=== PATIENT | male | born 1985 | race African-American/Black ===

== ENCOUNTER → 2017-02-11 09:49 | Emergency (ER) | payer BC, OTHER ==
[2017-02-11 10:27] VITALS: BP 140/81
== END | disposition left against medical advice (07) ==
LOC: ED 09:49
DX: M54.9 Dorsalgia, unspecified (principal); Z53.21 Procedure and treatment not carried out due to patient leaving prior to being seen by health care provider

== ENCOUNTER 2017-07-31 19:05 | Inpatient (IN) | payer BC, MEDICAID ==
[2017-07-31 19:47] LABS: Hematocrit 50 % (42-52); Hemoglobin 17.3 g/dl (14.0-18.0); Mean Corpuscular HGB Conc 35 g/dl (31-36); Mean Corpuscular Hemoglobin 30 pg (27-31); Mean Corpuscular Volume 86 fL (80-94); Mean Platelet Volume 9 um3 (7.4-10.4); Red Blood Count 5.81 10^6/ul (4.0-5.4); Red Cell Distribution Width 14 % (10.5-15); White Blood Count 7.4 10^3/ul (3.5-10.8)
[2017-07-31 19:50] LABS: Urine Bilirubin Negative (Negative); Urine Glucose Negative (Negative); Urine Nitrite Negative (Negative)
[2017-07-31 19:58] LABS: ALT 108 U/L (7-52); AST 65 U/L (13-39); Albumin 4.2 g/dL (3.2-5.2); Alkaline Phosphatase 59 U/L (34-104); Anion Gap 8 mmol/L (2-11); BUN/Creatinine Ratio 14.4 (8-20); Blood Urea Nitrogen 17 mg/dL (6-24); CO2 Carbon Dioxide 28 mmol/L (22-32); Calcium 8.9 mg/dL (8.6-10.3); Chloride 105 mmol/L (101-111); EGFR Non-African American 71.5 (>60); Globulin 3.2 g/dL (2-4); Glucose 68 mg/dL (70-100); Potassium 3.3 mmol/L (3.5-5.0); Sodium 141 mmol/L (133-145); Total Protein 7.4 g/dL (6.4-8.9)
[2017-07-31 20:01] LABS: Benzodiazepine Urine Screen None Detected (None Detect)
[2017-07-31 20:01] LABS: Acetaminophen < 15 mcg/mL; Alcohol 227 mg/dL (<10); Salicylate < 2.50 mg/dL (<30)
[2017-07-31 20:15] LABS: TSH (Thyroid Stimulating Horm) 0.55 mcIU/mL (0.34-5.60)
[2017-07-31] MEDS ORDERED: Nicotine Inhaler* 10 MG AMP INH ONE (20:16)
[2017-07-31] MEDS ORDERED: Mouth Piece, Nicotine* 1 EACH CARTRIDGE ONE (20:18)
[2017-07-31] MEDS ORDERED: Nicotine Inhaler* 10 MG AMP ONE (20:18)
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
--- NOTE | 2017-08-01 10:08 | PN ---
ED Flex Patient Progress Note Subjective: This is a 31 year-old M who is pending observed secondary to ETOH abuse and depressive symptoms. Pt offers no complaints at this time. He states he slept and ate well. Objective: Vitals: Most recent vital signs documented below. General NAD, Alert and oriented x3. Heart: rrr at 70 bpm Lungs: CTA or with rales, rhonchi, wheezing abd: soft nontender Laboratory: Current laboratory results documented below. Assessment: substance abuse Plan: Pending psychiatric to observe will follow up daily until disposition made. Condition: Stable Vital Signs Temp Pulse Resp BP Pulse Ox 98.0 F 107 16 101/48 97 08/01/17 02:52 08/01/17 02:52 08/01/17 02:52 08/01/17 02:52 08/01/17 02:52 Lab Results - Entire Visit 07/31/17 07/31/17 07/31/17 19:14 19:14 19:10 WBC 7.4 RBC 5.81 H Hgb 17.3 Hct 50 MCV 86 MCH 30 MCHC 35 RDW 14 Plt Count 175 MPV 9 Neut % (Auto) 51.4 Lymph % (Auto) 32.7 [place] % (Auto) 13.6 H Eos % (Auto) 2.0 Baso % (Auto) 0.3 Absolute Neuts (auto) 3.8 Absolute Lymphs (auto) 2.4 Absolute Monos (auto) 1.0 H Absolute Eos (auto) 0.1 Absolute Basos (auto) 0 Absolute Nucleated RBC 0 Nucleated RBC % 0.1 Sodium Potassium Chloride Carbon Dioxide Anion Gap BUN Creatinine Est GFR ( Amer) Est GFR (Non-Af Amer) BUN/Creatinine Ratio Glucose Calcium Total Bilirubin AST ALT Alkaline Phosphatase Total Protein Albumin Globulin Albumin/Globulin Ratio TSH Urine Color Colorless Urine Appearance Clear Urine pH 6.0 Ur Specific [place] 1.002 L Urine Protein Negative Urine Ketones Negative Urine Blood Negative Urine Nitrate Negative Urine Bilirubin Negative Urine Urobilinogen Negative Ur Leukocyte Esterase Negative Urine Glucose Negative Salicylates Urine Opiates Screen None detected Acetaminophen Ur Barbiturates Screen None detected Ur Phencyclidine Scrn None detected Ur Amphetamines Screen None detected U Benzodiazepines Scrn None detected Urine Cocaine Screen None detected U Cannabinoids Screen None detected Serum Alcohol 07/31/17 19:10 WBC RBC Hgb Hct MCV MCH MCHC RDW Plt Count MPV Neut % (Auto) Lymph % (Auto) [place] % (Auto) Eos % (Auto) Baso % (Auto) Absolute Neuts (auto) Absolute Lymphs (auto) Absolute Monos (auto) Absolute Eos (auto) Absolute Basos (auto) Absolute Nucleated RBC Nucleated RBC % Sodium 141 Potassium 3.3 L Chloride 105 Carbon Dioxide 28 Anion Gap 8 BUN 17 Creatinine 1.18 H Est GFR ( Amer) 92.0 Est GFR (Non-Af Amer) 71.5 BUN/Creatinine Ratio 14.4 Glucose 68 L Calcium 8.9 Total Bilirubin 1.30 H AST 65 H ALT 108 H Alkaline Phosphatase 59 Total Protein 7.4 Albumin 4.2 Globulin 3.2 Albumin/Globulin Ratio 1.3 TSH 0.55 Urine Color Urine Appearance Urine pH Ur Specific [place] Urine Protein Urine Ketones Urine Blood Urine Nitrate Urine Bilirubin Urine Urobilinogen Ur Leukocyte Esterase Urine Glucose Salicylates < 2.50 Urine Opiates Screen Acetaminophen < 15 Ur Barbiturates Screen Ur Phencyclidine Scrn Ur Amphetamines Screen U Benzodiazepines Scrn Urine Cocaine Screen U Cannabinoids Screen Serum Alcohol 227 H
[2017-08-01] MEDS ORDERED: Mouth Piece, Nicotine* 1 EACH CARTRIDGE ONE (10:33)
[2017-08-01] MEDS ORDERED: Acetaminophen TAB* 325 MG PO PRN (15:30)
[2017-08-01] MEDS ORDERED: Mouth Piece, Nicotine* 1 EACH CARTRIDGE INH SCH (15:30)
[2017-08-01] MEDS ORDERED: Nicotine Inhaler* 10 MG AMP INH PRN (15:30)
[2017-08-01] MEDS ORDERED: Al Hydrox/Mg Hydrox/Simet LIQ* 30 ML UDC PO PRN (15:30)
[2017-08-01] MEDS: traZODone TAB* 50 MG TAB PO SCH (21:09)
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
[2017-08-02] MEDS: Vitamin THERAPEUTIC TAB PO SCH (08:17)
[2017-08-02] MEDS: FLUoxetine CAP* 20 MG PO SCH (08:17)
[2017-08-02] MEDS ORDERED: Influenza VAC *QUAD* 2017-18* 0.5 ML SYRINGE IM ONE (09:00)
[2017-08-02] MEDS: traZODone TAB* 50 MG TAB PO SCH (21:28)
[2017-08-03] MEDS: FLUoxetine CAP* 20 MG PO SCH (08:17)
[2017-08-03] MEDS: Vitamin THERAPEUTIC TAB PO SCH (08:17)
[2017-08-03] MEDS: Disulfiram TAB* 250 MG PO SCH (12:09)
--- NOTE | 2017-08-03 14:45 | PN ---
Subjective - Subjective Service Type: 53190 Hosp care 25 min moderate complexity Subjective: Patient reports motivation to attend inpatient substance use treatment. He states he phoned his counselor at [facility] and was told there is a bed available. He also spoke with his deportation officer and is encouraged to utilize Antabuse, complete inpatient treatment then wear an alcohol monitor bracelet. He states he hopes to finish his associate's degree at [employer] then transfer to [employer]. Patient goes on to describe contemplation about events leading to relapse. He states he has an AA sponsor and his working closely with him. Stacey denies alcohol withdrawal symptoms or cravings. He states he relapsed on cigarettes last month but denies cravings. He states he was abstinent for over a year prior. He declines need for nicotine replacement. Patient denies side effects from fluoxetine. He reports continued anxiety and states understanding of expected effects of this med. He declines increase or adjunct medications for anxiety. Objective - Appearance Appearance: Well Developed/Nourished Dysmorphic Features: Yes Hygiene: Normal Grooming: Well Kept - Behavior Psychomotor Activities: Normal Exhibits Abnormal Movement: No - Attitude and Relatedness Attitude and Relatedness: Cooperative Eye Contact: Good - Speech Quality: Unpressured Latencies: Normal Quantity: Appropriate - Mood Patient's Decription of Mood: "Fine" - Affect Observed Affect: Depressed Affect Consistent with: Euthymia - Thought Process Patient's Thought Process: Coherent, Goal Directed Thought Content: No Passive Wish, No Suicidal Planning, No Homicidal Ideation, No Paranoid Ideation - Sensorium Experiencing Hallucinations: No, Sensorium is Clear Type of Hallucinations: Visual: No, Auditory: No, Command: No - Level of Consciousness Level of Consciousness: Alert Orientation: Yes Intact, Yes Orientated to Time, Yes Orientated to Place, Yes Orientated to Person - Impulse Control Impulse Control: Tenuous - Insight and Judgement Insight and Judgement: Fair - Group Participation Particating in Group Activities: Yes - Medication Management Medication Management Adherence: Yes Assessment - Assessment Merits Inpatient Hospitalization: For Immediate Safety, For Stabilization, To Initiate Treatment, For Discharge Planning Inpatient DSM-IV Dx: major depressive d/o, moderate, recurrent; alcohol use d/o ; tobacco use d/o Clinical Impression: 31yo male who presented to the ED by police when found unresponsive and intoxicated in the community. He expressed increased depressed mood and suicidal ideation and requested admission to [facility]. He merits hospitalization for immediate safety and stabilization. Plan - Plan Treatment Plan: Name: STACEY SANCHEZ Birthdate: 1985 [id number] continue acute intensive psychiatric treatment. add antabuse 500mg po daily. decrease to q30min observation and allow staff pass. He is agreeable to increase substance use tx from outpatient to inpatient. Referrals will be sent by clinical social worker. Obtain labs for HIV and hepatitis per patient request. Will recheck LFTs. Continued Medication Management: Different Medication Medications: Current Medications Acetaminophen (Tylenol Tab*) 650 mg PO Q4H PRN PRN Reason: PAIN or TEMP > 101 F Al Hydrox/Mg Hydrox/Simethicone (Maalox Plus*) 30 ml PO Q4H PRN PRN Reason: INDIGESTION Device (Nicotine Mouth Piece*) 1 each INH .[facility] Disulfiram (Antabuse Tab*) 500 mg PO DAILY [facility] Last Admin: 08/03/17 12:09 Dose: 500 mg Fluoxetine HCl (Prozac Cap*) 20 mg PO DAILY [facility] Last Admin: 08/03/17 08:17 Dose: 20 mg Multivitamins (Theragran Tab*) 1 tab PO DAILY [facility] Last Admin: 08/03/17 08:17 Dose: 1 tab Nicotine (Nicotine Inhaler*) 10 mg INH Q2H PRN PRN Reason: CRAVING Trazodone HCl (Desyrel Tab*) 50 mg PO BEDTIME [facility] Last Admin: 08/02/17 21:28 Dose: 50 mg - Discharge Plan Discharge Plan: Drug/Alcohol Rehab Outpatient Program: [facility]
[2017-08-03 16:52] LABS: Albumin 3.9 g/dL (3.2-5.2); Direct Bilirubin 0.2 mg/dL (0.03-0.18); Globulin 2.6 g/dL (2-4); Indirect Bilirubin 0.6 mg/dL (0.3-1.0); Total Bilirubin 0.8 mg/dL (0.2-1.0); Total Protein 6.5 g/dL (6.4-8.9)
[2017-08-03] MEDS: traZODone TAB* 50 MG TAB PO SCH (21:52)
[2017-08-04] MEDS: FLUoxetine CAP* 20 MG PO SCH (07:58)
[2017-08-04] MEDS: Disulfiram TAB* 250 MG PO SCH ×2 (07:58→11:51)
[2017-08-04] MEDS: Vitamin THERAPEUTIC TAB PO SCH (07:58)
--- NOTE | 2017-08-04 15:27 | PN ---
Subjective - Subjective Service Type: 26297 Hosp care 25 min moderate complexity Subjective: Patient reports fleeting stomach pain after taking antabuse; denies other side effects. He is notified of LFT results and hep/hiv negative results. He reports poor sleep due to frequent waking and requests increase in trazodone. He would like to increase fluoxetine. Patient reports motivation to pursue [facility] inpatient treatment. He recognizes some of the triggers leading to relapse: "self hate" and frustration with family court and other barriers to visitation with his daughter. He states concern that his is being told by others to "just leave him." He states he knows that he has to prioritize recovery and also wants her to be supportive and "in his corner." Objective - Appearance Appearance: Well Developed/Nourished Dysmorphic Features: No Hygiene: Normal Grooming: Well Kept - Behavior Psychomotor Activities: Normal Exhibits Abnormal Movement: No - Attitude and Relatedness Attitude and Relatedness: Cooperative Eye Contact: Good - Speech Quality: Unpressured Latencies: Normal Quantity: Appropriate - Mood Patient's Decription of Mood: "Good" - Affect Observed Affect: Good Affect Consistent with: Euthymia - Thought Process Patient's Thought Process: Coherent, Goal Directed Thought Content: No Passive Wish, No Suicidal Planning, No Homicidal Ideation, No Paranoid Ideation - Sensorium Experiencing Hallucinations: No, Sensorium is Clear Type of Hallucinations: Visual: No, Auditory: No, Command: No - Level of Consciousness Level of Consciousness: Alert Orientation: Yes Intact, Yes Orientated to Time, Yes Orientated to Place, Yes Orientated to Person - Impulse Control Impulse Control: Intact - Insight and Judgement Insight and Judgement: Good - Group Participation Particating in Group Activities: Yes - Medication Management Medication Management Adherence: Yes Assessment - Assessment Merits Inpatient Hospitalization: For Immediate Safety, For Stabilization, To Initiate Treatment, For Discharge Planning Inpatient DSM-IV Dx: major depressive d/o, moderate, recurrent; alcohol use d/o ; tobacco use d/o Clinical Impression: 31yo male who presented to the ED by police when found unresponsive and intoxicated in the community. He expressed increased depressed mood and suicidal ideation and requested admission to [facility]. He merits hospitalization for immediate safety and stabilization. Plan - Plan Treatment Plan: Name: STACEY SANCHEZ Birthdate: 1985 [id number] continue acute intensive psychiatric treatment. decrease antabuse to 250mg daily , increase trazodone to 100mg qhs and fluoxetine to 30mg daily. add computer privileges. Patient accepted to [facility] and given a bed date for tomorrow morning. Continued Medication Management: Start Medication Medications: Current Medications Acetaminophen (Tylenol Tab*) 650 mg PO Q4H PRN PRN Reason: PAIN or TEMP > 101 F Al Hydrox/Mg Hydrox/Simethicone (Maalox Plus*) 30 ml PO Q4H PRN PRN Reason: INDIGESTION Device (Nicotine Mouth Piece*) 1 each INH [facility] Disulfiram (Antabuse Tab*) 250 mg PO DAILY [facility] Last Admin: 08/04/17 11:51 Dose: Not Given Fluoxetine HCl (Prozac Cap*) 30 mg PO DAILY [facility] Multivitamins (Theragran Tab*) 1 tab PO DAILY [facility] Last Admin: 08/04/17 07:58 Dose: 1 tab Nicotine (Nicotine Inhaler*) 10 mg INH Q2H PRN PRN Reason: CRAVING Trazodone HCl (Desyrel Tab*) 100 mg PO BEDTIME [facility] - Discharge Plan Discharge Plan: Drug/Alcohol Rehab Outpatient Program: [facility]
[2017-08-04] MEDS ORDERED: traZODone TAB* 100 MG PO SCH (21:00)
[2017-08-05] MEDS: Disulfiram TAB* 250 MG PO SCH (07:39)
[2017-08-05] MEDS: Vitamin THERAPEUTIC TAB PO SCH ×2 (07:39→07:41)
[2017-08-05 07:41] VITALS: BP 119/66
[2017-08-05] MEDS ORDERED: FLUoxetine CAP* 10 MG PO SCH (09:00)
--- NOTE | 2017-08-06 10:38 | DS ---
DISCHARGE SUMMARY: DATE OF ADMISSION: 08/01/17 DATE OF DISCHARGE: 08/05/17 SUPERVISING PSYCHIATRIST: Quintin Kirkland MD DISCHARGE DIAGNOSES: 1. Alcohol use disorder. 2. Cocaine use disorder. 3. Tobacco use disorder. 4. Major depressive disorder, severe recurrent. CONDITION AT THE TIME OF DISCHARGE: Improved. The patient is euthymic and congruent. Affect: He r eported readiness for discharge. He reports improved depression and anxiety and denies SI. He repor ts eagerness to attend [facility] inpatient and has been an active participant in discharge planning. MENTAL STATUS EXAM AT THE TIME OF DISCHARGE: The patient is a moderately built 31- year-old male who appears stated age. He is adequately groomed, dressed in his own clothing. He makes good eye contact. He is cooperative and answers questions fully. He is well related, has no abnormal psy chomotor activity observed. He is alert and oriented. Speech is soft and articulate with normal rat e, rhythm and volume. His affect is constricted. He reports his mood is "good." Thought process is linear and goal-directed. Thought content is negative for SI, AV hallucinations, delusions. His in sight and judgment are good. His impulse control is good in the setting. He states motivation to pa rticipate in inpatient substance use treatment. He is motivated to be an active participant of his amily. His fund of knowledge is adequate. DISCHARGE INSTRUCTIONS: Given to the patient by nursing staff: A. Medications: 1. Disulfiram 250 mg p.o. daily. 2. Clonidine 30. 3. Fluoxetine 30 mg p.o. daily, quantity 30. 4. Trazodone 100 mg p.o. q.h.s., quantity 30. 5. Multivitamin 1 p.o. daily, quantity 30. These were electronically prescribed to [facility] in [place] per request of [facility] inpatient. B. Diet: Regular. C. Activities: Ambulation as tolerated. Tobacco cessation is not applicable and there are no pendi ng studies at the time of discharge. The patient was informed of his normal results of HIV and hepat itis screening per his request. D. Follow-up care: The patient will follow up with [facility] for inpatient substance use treatment. He will follow up with his primary care provider, [facility] as needed. Results of labo ratory tests will be faxed per patient's request. Substance use followup: Patient was referred to [facility] in [place] for substance abuse treatment. He has also been prescribed Antabuse for alcoh ol use disorder per his request. HOSPITAL COURSE: A. Reason for admission: The patient presented to the emergency department heavily intoxicated after being found in the community unresponsive lying on the ground. When he was medica lly stable and no longer intoxicated, he reported depression and suicidal ideation. He requested vol untary hospitalization. B. Psychiatric treatment rendered: The patient was admitted to [facility] and p laced on 15-minute checks. He was full code status and his legal status is voluntary. He was encour aged to participate in supportive milieu, individual sessions with staff and psychoeducational groups . The patient denied alcohol withdrawal symptoms. Therefore, WAM was not necessary. He requested m edication Antabuse for alcohol cravings and prevention of relapse. The patient was an active partici pant of programming. He was calm and in behavioral control. He was safe on all checks. He was decre ased to 30-minute observation and allowed staff pass. He was in close contact with his [facility] counselo r as he had already been an outpatient client. He coordinated with her to be [facility] [place]. The patient completed a NITA packet. He requested use of the computer to coordinate with [facility] as he is also motivated to finish his associates degree. He was in contact w ith his chief strategy officer and is motivated to complete inpatient treatment and then wear an alcohol m onitor bracelet. The patient was trialed on fluoxetine and trazodone. He was agreeable to increase these doses to fluoxetine 30 mg for improved treatment of anxiety along with depression. He reported efficacy from trazodone the first night, less so in the second night and requested a dose increase. The patient denied need for nicotine replacement as he had recently relapsed on cigarettes, but is m otivated to refrain from nicotine use. LABORATORY RESULTS: The patient's CBC was grossly unremarkable. His CMP was noted to have elevated AST and ALT. Upon arrival to the emergency department, his alcohol level was 227. We repeated his li tyrese enzymes on 08/03/17. His AST and ALT are starting to trend downward. The patient requested HIV and hepatitis screenings and these were all nonreactive. The patient was notified of bed availabilit y at [facility] and discharge was planned for the morning of 08/05/17. The patient was offered and accepte d a Medicaid cab transport to the facility. He notified his and family members and they are sup portive and will be helping him by bringing him clothing and other supplies. The patient was dischar ged by nursing staff and given written information. He was encouraged to call the unit for any quest ion or concerns after discharge and he was made aware of other resources in the community for alcohol and substance use. RADHA CASTAÑEDA, RICK [id number]/[facility] #: [id number]
== END 2017-08-05 09:00 | DRG 751 ==
LOC: ED 19:05 → BSU 08-01 14:02
PROVIDERS: ADMIT Psychiatry & Neurology Psychiatry; ATTEND Psychiatry & Neurology Psychiatry
DX: F33.1 Major depressive disorder, recurrent, moderate (principal); R45.851 Suicidal ideations; F10.129 Alcohol abuse with intoxication, unspecified; Y90.8 Blood alcohol level of 240 mg/100 ml or more; F17.210 Nicotine dependence, cigarettes, uncomplicated; F11.21 Opioid dependence, in remission; F14.21 Cocaine dependence, in remission; Z81.8 Family history of other mental and behavioral disorders; Z81.1 Family history of alcohol abuse and dependence; Z81.3 Family history of other psychoactive substance abuse and dependence
CPT/HCPCS: 36415; 80053; 80074; 80076; 80307; 80320; 80329; 81003; 84443; 85025; 86703; 90686; 99222; 99232; A9270-GY; G0480

== ENCOUNTER 2017-11-03 18:45 | Emergency (ER) | payer OTHER ==
[2017-11-03] MEDS ORDERED: Tetan/Diph/Pertus SYR(Tdap)* 0.5 ML SYR(BOOSTRIX) use SYR IM ONE (19:17)
--- NOTE | 2017-11-03 19:17 | ED ---
Laceration/Wound HPI - HPI Summary HPI Summary: 31-year-old male presents with right arm laceration today. He states he was reaching into a toolbox onto the box. The area is actively bleeding. He does not know when his last tetanus was. He denies any foreign body. He has full range of motion of his arm. He is right-handed. - History of Current Complaint Stated Complaint: RIGHT ARM LAC Time Seen by Provider: 11/03/17 18:52 Pain Intensity: 0 - Additional Pertinent History Primary Care Physician: SMITHA - Allergy/Home Medications Allergies/Adverse Reactions: Allergies Allergy/AdvReac Type Severity Reaction Status Date / Time Penicillins Allergy Swelling Verified 11/03/17 19:06 Of Face,Lips,& Throat PMH/Surg Hx/FS Hx/Imm Hx Endocrine/Hematology History: Denies: Hx Anticoagulant Therapy, Hx Diabetes, Hx Thyroid Disease Cardiovascular History: Denies: Hx Hypertension, Hx Pacemaker/ICD Respiratory History: Denies: Hx Asthma, Hx Chronic Obstructive Pulmonary Disease (COPD) GI History: Denies: Hx Ulcer History: Denies: Hx Renal Disease Sensory History: Denies: Hx Contacts or Glasses, Hx Hearing Aid Opthamlomology History: Denies: Hx Contacts or Glasses Neurological History: Denies: Hx Dementia, Hx Seizures Psychiatric History: Reports: Hx Community Mental Health Tx, Hx Substance Abuse Denies: Hx Eating Disorder, Hx of Violent Episodes Against Others - Immunization History Date of Tetanus Vaccine: 2010 Infectious Disease History: No Infectious Disease History: Denies: Hx Clostridium Difficile, Hx Hepatitis, Hx Human Immunodeficiency Virus (HIV), Hx of Known/Suspected MRSA, Hx Shingles, Hx Tuberculosis, Hx Known/ Suspected VRE, Hx Known/Suspected VRSA, History Other Infectious Disease, Traveled Outside the [place] in Last 30 Days - Family History Known Family History: Positive: None Negative: Respiratory Disease - Social History Alcohol Use: Daily Substance Use Type: Reports: Heroin Substance Use Comment - Amount & Last Used: today Smoking Status (MU): Former Smoker Type: Cigarettes Amount Used/How Often: IPPD FOR 5-10 YEARS but has not smoked or used tobacco in the last 30 days Have You Smoked in the Last Year: No Review of Systems Negative: Fever Negative: Chest Pain Negative: Shortness Of Breath Positive: Other - right hand laceration All Other Systems Reviewed And Are Negative: Yes Physical Exam Triage Information Reviewed: Yes Vital Signs On Initial Exam: Initial Vitals Temp Pulse Resp BP Pulse Ox 98.7 F 94 18 150/93 100 11/03/17 18:49 11/03/17 18:49 11/03/17 18:49 11/03/17 18:49 11/03/17 18:49 Vital Signs Reviewed: Yes Appearance: Positive: Well-Appearing Skin: Positive: Warm, Dry, Other - 5cm by 1/2cm laceration to right forearm Head/Face: Positive: Normal Head/Face Inspection Eyes: Positive: Normal, Conjunctiva Clear Respiratory/Lung Sounds: Positive: Clear to Auscultation, Breath Sounds Present Cardiovascular: Positive: Normal, RRR Musculoskeletal: Positive: Strength/ROM Intact - right arm, Other - good pulses Neurological: Positive: Normal Psychiatric: Positive: Normal Procedures - Laceration/Wound Repair 1 Location: Other - right forearm Description: Linear Anesthesia: Local, 1.0% Length, Depth and Shape: 5cm by 1/2cm Irrigated w/ Saline (ccs): 100 Laceration/Wound Explored: no foreign body removed Closure: Single Layer Suture Type: Prolene - 4-0 Number of Sutures: 5 Layer Closure?: No Sterile Dressing Applied?: No - telfa and karolina Diagnostics - Vital Signs Vital Signs Temp Pulse Resp BP Pulse Ox 11/03/17 18:49 98.7 F 94 18 150/93 100 - Laboratory Lab Statement: Any lab studies that have been ordered have been reviewed, and results considered in the medical decision making process. Laceration Repair Course/Dx - Course Course Of Treatment: 31-year-old male presents with right arm laceration today. He states he was reaching into a toolbox onto the box. The area is actively bleeding. He does not know when his last tetanus was. He denies any foreign body. He has full range of motion of his arm. He is right-handed. On exam has 5 cm laceration to the right forearm. Clean area and placed 5 sutures. Gave tdap. Patient understands and agrees with plan. - Differential Dx Differental Diagnoses: Abrasion, Avulsion, Laceration - Clinical Impression Provider Diagnoses: Laceration of right upper arm Discharge - Discharge Plan Condition: Good Disposition: HOME Patient Education Materials: Care For Your Stitches (ED) Referrals: Luis Snow MD [Primary Care Provider] - Additional Instructions: Take Tylenol or ibuprofen for pain Keep area clean and dry for 24 hours Return to ED or primary in 10-14 days to have sutures removed Return to ED if develop signs of infection such as fever, spreading redness, or pus.
[2017-11-03 19:34] VITALS: BP 140/80
== END 2017-11-03 19:33 | disposition home or self-care (01) ==
LOC: ED 18:45
DX: S51.811A Laceration without foreign body of right forearm, initial encounter (principal); W27.8XXA Contact with other nonpowered hand tool, initial encounter; Y92.9 Unspecified place or not applicable; Z23 Encounter for immunization; Z87.891 Personal history of nicotine dependence; Z88.0 Allergy status to penicillin
CPT/HCPCS: 12002; 90471; 90715; 99282

== ENCOUNTER 2019-11-13 23:37 | Emergency (ER) | payer OTHER ==
[2019-11-14] MEDS ORDERED: Clindamycin CAP* 150 MG PO ONE (02:33)
[2019-11-14] MEDS ORDERED: Naproxen TAB* 250 MG PO ONE (02:33)
--- NOTE | 2019-11-14 02:38 | ED ---
Throat Pain/Nasal Congestion - HPI Summary HPI Summary: Patient is a 33 y/o M presenting to [facility] with chief complaint of dental pain. He states that the dental pain onset around 2100 last evening. Patient notes some pain to his entire left face as well. Fever, nausea are denied. 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 He denies PMHx, daily medications, PSHx. He does note a Penicillin allergy. Patient smokes cigarettes and consumes alcohol but denies other substance usage. Home medications and allergies are reviewed. - History of Current Complaint Chief Complaint: EDDentalPain Time Seen by Provider: 11/14/19 02:21 Hx Obtained From: Patient Onset/Duration: Lasting Hours, Still Present Severity: Moderate Associated Signs And Symptoms: Positive: Negative Cough: None - Allergies/Home Medications Allergies/Adverse Reactions: Allergies Allergy/AdvReac Type Severity Reaction Status Date / Time Penicillins Allergy Swelling Verified 11/13/19 23:39 Of Face,Lips,& Throat Home Medications: Home Medications Cefdinir cap* [Cefdinir 300 MG cap (NF)] 300 mg PO BID #20 cap 09/10/19 [Rx] Ondansetron ODT TAB* [Zofran 4 MG Odt TAB*] 4 mg PO Q8H PRN #12 tab.odt [Rx] clindamycin HCL [Clindamycin HCl] 150 mg PO QID #40 capsule 11/14/19 [Rx] PMH/Surg Hx/FS Hx/Imm Hx Endocrine/Hematology History: Denies: Hx Anticoagulant Therapy, Hx Diabetes, Hx Thyroid Disease Cardiovascular History: Denies: Hx Hypertension, Hx Pacemaker/ICD Respiratory History: Denies: Hx Asthma, Hx Chronic Obstructive Pulmonary Disease (COPD) GI History: Denies: Hx Ulcer History: Denies: Hx Renal Disease Sensory History: Denies: Hx Contacts or Glasses, Hx Hearing Aid Opthamlomology History: Denies: Hx Contacts or Glasses Neurological History: Denies: Hx Dementia, Hx Seizures Psychiatric History: Reports: Hx Community Mental Health Tx, Hx Substance Abuse Denies: Hx Eating Disorder, Hx of Violent Episodes Against Others - Immunization History Date of Tetanus Vaccine: 2010 Infectious Disease History: No Infectious Disease History: Denies: Hx Clostridium Difficile, Hx Hepatitis, Hx Human Immunodeficiency Virus (HIV), Hx of Known/Suspected MRSA, Hx Shingles, Hx Tuberculosis, Hx Known/ Suspected VRE, Hx Known/Suspected VRSA, History Other Infectious Disease, Traveled Outside the [place] in Last 30 Days - Family History Known Family History: Negative: Respiratory Disease - Social History Alcohol Use: Weekly Substance Use Type: Reports: None Substance Use Comment - Amount & Last Used: today Smoking Status (MU): Current Some Day Smoker Type: Cigarettes Amount Used/How Often: IPPD FOR 5-10 YEARS but has not smoked or used tobacco in the last 30 days Have You Smoked in the Last Year: No - Additional Comments History Additional Comments: No PHMx No PSHx Review of Systems - ROS Summary Review of Systems Summary: Home Medications Medication Instructions Recorded Confirmed Type Cefdinir cap* [Cefdinir 300 MG cap 300 mg PO BID #20 cap 09/10/19 Rx (NF)] Ondansetron ODT TAB* [Zofran 4 MG 4 mg PO Q8H PRN #12 tab.odt 09/10/19 Rx Odt TAB*] clindamycin HCL [Clindamycin HCl] 150 mg PO QID #40 capsule 11/14/19 Rx Negative: Fever Positive: Dental Pain Negative: Vomiting All Other Systems Reviewed And Are Negative: Yes Physical Exam - Summary Physical Exam Summary: General: Well-developed, Well-nourished male. No acute distress. HEENT: Normocephalic, Atraumatic. The bottom left tooth, second from the back, is with filling but no obvious abnormality. Patient has mild facial swelling by the area of this tooth. Eyes: Conjuctiva normal, PERRL. Oropharynx: Clear, mucous membranes moist, (-) exudates. Neck: Soft, FROM, (-) lymphadenopathy, (-) thyromegaly, (-) JVD. Cardiovascular: Normal sinus rhythm, (-) murmur. Lungs: Clear to auscultation bilaterally (-) wheezes, (-) rales, (-) rhonchi. Abdomen: Soft, non-tender, non-distended, (-) organomegaly, normal bowel sounds. Back: (-) CVA tenderness Extremities: No edema. Skin: Warm, dry, (-) rash. Neuro: Alert and oriented x3, moves all extremities equally. No ataxia. No gait disturbance. No sensory deficit. Normal strength, normal sensation. Psychiatric: Mood normal, affect normal. Triage Information Reviewed: Yes Vital Signs On Initial Exam: Initial Vitals Temp Pulse Resp BP Pulse Ox 98.0 F 94 18 163/100 98 11/13/19 23:39 11/13/19 23:39 11/13/19 23:39 11/13/19 23:39 11/13/19 23:39 Vital Signs Reviewed: Yes Procedures - Sedation Patient Received Moderate/Deep Sedation with Procedure: No Diagnostics - Vital Signs Vital Signs Temp Pulse Resp BP Pulse Ox 11/13/19 23:39 98.0 F 94 18 163/100 98 - Laboratory Lab Statement: Any lab studies that have been ordered have been reviewed, and results considered in the medical decision making process. EENT Course/Dx - Course Course Of Treatment: 33-year-old male presents from home with dental pain. He states about 9:00 last night started having severe pain in his left tooth. Over the past few hours it has become swollen. Increased pain. No fevers or chills. No nausea vomiting. Did not take anything at home. On physical exam his #18 tooth has a filling present. No significant swelling or erythema. No significant tenderness. Mild facial swelling. Afebrile. Patient offered antibiotic and pain medication. He agreed to 1 pain pill and antiemetics. Given naproxen and clindamycin. Started on clindamycin. Follow-up with dentist. Follow-up sooner for any worsening symptoms. - Diagnoses Provider Diagnoses: Pain, dental Discharge ED - Sign-Out/Discharge Documenting (check all that apply): Patient Departure - discharge - Discharge Plan Condition: Stable Disposition: HOME Prescriptions: clindamycin HCL [Clindamycin HCl] 150 mg PO QID #40 capsule Patient Education Materials: Toothache (ED) Referrals: Saige Oglesby DO [Primary Care Provider] - 3 Days Additional Instructions: PLEASE RETURN TO ED FOR ANY NEW OR WORSENING SYMPTOMS. PLEASE FOLLOW-UP WITH YOUR PRIMARY CARE PHYSICIAN WITHIN THREE DAYS. - Billing Disposition and Condition Condition: STABLE Disposition: Home - Attestation Statements Document Initiated by Scribe: Yes Documenting Scribe: MICHAEL RENEE Provider For Whom Scribe is Documenting (Include Credential): EMILEE VILLAR MD Scribe Attestation: MICHAEL Henderson, scribed for EMILEE VILLAR MD on 11/14/19 at 0443. Scribe Documentation Reviewed: Yes Provider Attestation: The documentation as recorded by the scribe, MICHAEL RENEE accurately reflects the service I personally performed and the decisions made by me, EMILEE VILLAR MD Status of Scribe Document: Viewed
[2019-11-14 02:43] VITALS: BP 142/89
== END 2019-11-14 02:42 | disposition home or self-care (01) ==
LOC: ED 23:37
DX: K08.89 Other specified disorders of teeth and supporting structures (principal); Z88.0 Allergy status to penicillin; Z72.0 Tobacco use
CPT/HCPCS: 99282; A9270-GY